=== PATIENT | female | born 1960 | race African-American/Black ===

== ENCOUNTER 2018-08-14 11:30 | Emergency (ER) | payer OTHER, SELFPAY ==
[~2018-08-14] VITALS: Ht 165.1 cm; Wt 72.6 kg
[~2018-08-14 11:30] MED LIST: ALBUTEROL SULF8.5 GM INH; DILANTIN100 MG PO; PHENOBARBITAL30 MG PO; TAPAZOLE10 MG PO; ZESTRIL10 MG PO
[2018-08-14] MEDS ORDERED: AMLODIPINE BESY10 MG ORAL (11:47)
[2018-08-14 11:50] VITALS: BP 150/103
--- NOTE | 2018-08-14 11:50 | NUR ---
ED Nurse Note: AMBULATED IN TO ER WITH FAMILY MEMBER DUE TO ABDOMINAL PAIN, DIARRHEA (3-4TIMES A DAY), VOMITING X3DAYS; UNABLE TO TOLERATE ORAL INTAKE. REPORTS NO USE OF ALCOHOL OR DRUG OR NO SEAFOOD CONSUMPTION.
[2018-08-14] MEDS ORDERED: Dicyclomine HCl 10mg/5ml oral soln ORAL ONE (12:15)
[2018-08-14] MEDS ORDERED: Lidocaine 2% Visc 15ml soln ORAL ONE (12:15)
[2018-08-14] MEDS ORDERED: Mylanta II UD 30ml ORAL ONE (12:15)
[2018-08-14 12:43] LABS: BASOPHILS % (AUTO) 0.9 % (0.0-2.0); EOSINOPHILS % (AUTO) 0.1 % (0.0-3.0); HEMATOCRIT 47.2 % (37.0-47.0); HEMOGLOBIN 15.8 G/DL (12.0-16.0); MEAN CORPUSCULAR VOLUME 89 FL (80-99); MONOCYTES % (AUTO) 6.5 % (1.0-10.0); NEUTROPHILS % (AUTO) 78.5 % (45.0-75.0); PLATELET COUNT 340 K/UL (150-450); RED BLOOD COUNT 5.29 M/UL (4.20-5.40); RED CELL DISTRIBUTION WIDTH 12.3 % (11.6-14.8); WHITE BLOOD COUNT 7.8 K/UL (4.8-10.8)
[2018-08-14 12:44] LABS: APPEARANCE,URINE SLIGHTLY CLOUDY; BILIRUBIN, URINE NEGATIVE (NEGATIVE); COLOR,URINE YELLOW; GLUCOSE, URINE (UA) NEGATIVE (NEGATIVE); KETONES,URINE 1+ (NEGATIVE); LEUKOCYTE ESTERASE ,URINE 1+ (NEGATIVE); NITRITE,URINE NEGATIVE (NEGATIVE); PH,URINE 6.5 (4.5-8.0); PROTEIN,URINE 2+ (NEGATIVE); UROBILINOGEN,URINE 1 MG/DL (0.0-1.0)
[2018-08-14 12:56] LABS: ANION GAP 10 mmol/L (5-15); BLOOD UREA NITROGEN 18 mg/dL (7-18); CALCIUM 9.8 MG/DL (8.5-10.1); CARBON DIOXIDE 27 MMOL/L (21-32); CHLORIDE 101 MMOL/L (98-107); CREATININE 0.9 MG/DL (0.55-1.30); POTASSIUM 3.5 MMOL/L (3.5-5.1); SODIUM 138 MMOL/L (136-145)
[2018-08-14 13:00] LABS: ALANINE AMINOTRANSFERASE 18 U/L (12-78); ALBUMIN 4.3 G/DL (3.4-5.0); ALBUMIN/GLOBULIN RATIO 1.1 (1.0-2.7); ALKALINE PHOSPHATASE 117 U/L (46-116); ASPARTATE AMINO TRANSFERASE 16 U/L (15-37); BILIRUBIN,TOTAL 0.7 MG/DL (0.2-1.0)
[2018-08-14] MEDS ORDERED: ONDANSETRON ODT4 MG BC (13:52)
[2018-08-14] MEDS ORDERED: DICYCLOMINE HCL10 MG PO (13:52)
[2018-08-14] MEDS ORDERED: RANITIDINE HCL150 MG ORAL (13:52)
[2018-08-14] MEDS ORDERED: CEPHALEXIN500 MG ORAL (13:52)
[2018-08-14] MEDS ORDERED: TAMIFLU75 MG ORAL (13:52)
[2018-08-14] MEDS ORDERED: Norco 5mg/325mg tab ORAL ONE (14:00)
[2018-08-14 14:17] VITALS: BP 170/108
--- NOTE | 2018-08-14 14:50 | NUR ---
ER Nurse Note: A/OX4. PT IS CLEARED BY DR.K. TOBAR INSTRUCTION AND PRESCRIPTIONS GIVEN, PT VERBALIZED UNDERSTSANDING. IV/ID WRISTBAND REMOVED. ALL BELONGINGS TAKEN BY PT. DENIES ANY PAIN AT THIS TIME. PT AMBULATED OUT OF ER WITH STEADY GAIT.
--- NOTE | 2018-08-14 14:52 | Emergency Room Report ---
History of Present Illness General Chief Complaint: Abdominal Pain Source: Patient Present Illness HPI 58-year-old female presents ED for evaluation. Complaining of abdominal pain with vomiting and diarrhea for the last 3 days. States that she recently return from a trip to [place]. Pain is cramping, 8 out of 10, nonradiating. Denies recent antibiotic use. Denies fevers or chills. Denies chest pain or shortness of breath. No other aggravating relieving factors. Denies any other associated symptoms Allergies: Coded Allergies: No Known Allergies (Unverified , 03/16/12) Patient History Past Medical History: HTN, asthma Past Surgical History: none Pertinent Family History: none Social History: Denies: smoking, alcohol use, drug use Now: No Immunizations: UTD Reviewed Nursing Documentation: PMH: Agreed; PSxH: Agreed Nursing Documentation-PMH Past Medical History: No History, Except For Hx Hypertension: Yes Hx Asthma: Yes Review of Systems All Other Systems: negative except mentioned in HPI Physical Exam Vital Signs Date Time Temp Pulse Resp B/P (MAP) Pulse Ox O2 Delivery O2 Flow Rate FiO2 08/14/18 11:42 97.5 85 16 150/103 97 Room Air Sp02 EP Interpretation: reviewed, normal General Appearance: no apparent distress, alert, GCS 15, non-toxic Head: normocephalic, atraumatic Eyes: bilateral eye normal inspection, bilateral eye PERRL ENT: hearing grossly normal, normal pharynx, no angioedema, normal voice Neck: full range of motion, supple/symm/no masses Respiratory: chest non-tender, lungs clear, normal breath sounds, speaking full sentences Cardiovascular #1: regular rate, rhythm, no edema Cardiovascular #2: 2+ carotid (R), 2+ carotid (L), 2+ radial (R), 2+ radial (L) , 2+ dorsalis pedis (R), 2+ dorsalis pedis (L) Gastrointestinal: normal bowel sounds, soft, non-distended, no guarding, no rebound, tenderness Rectal: deferred Genitourinary: normal inspection, no CVA tenderness Musculoskeletal: back normal, gait/station normal, normal range of motion, non- tender Neurologic: alert, oriented x3, responsive, motor strength/tone normal, sensory intact, speech normal Psychiatric: judgement/insight normal, memory normal, mood/affect normal, no suicidal/homicidal ideation Reflexes: 3+ bicep (R), 3+ bicep (L), 3+ tricep (R), 3+ tricep (L), 3+ knee (R) , 3+ knee (L) Skin: normal color, no rash, warm/dry, well hydrated Lymphatic: no adenopathy Medical Decision Making Diagnostic Impression: Primary Impression: UTI (urinary tract infection) Qualified Codes: N39.0 - Urinary tract infection, site not specified Additional Impression: Gastroenteritis ER Course Hospital Course 58 yo F presents with cramping abdominal pain with vomiting, diarrhea differential diagnosis: gastritis, SBO, cholecystits, gastroenteritis Clinical course Patient placed on stretcher. On cafeteria monitor. After initial history and physical I ordered labs, IV fluids, zofran, pepcid, GI cocktail Labs - no leukocytosis, electrolytes ok, LFTs normal, UA + bacteria, flu swab negative Upon reassessment, patient states pain has improved. findings consistent with gastroenteritis Discussed findings with patient. We'll discharge with medications, Tamiflu. Safe for discharge close outpatient follow-up states she has a PMD I feel this is a highly complex case requiring extensive working including EKG/ Rhythm strip, Xray/CT/US, Blood/urine lab work, repeat exams while in ED, and administration of strong opiates/narcotics for pain control, admission to hospital or close patient follow up. Diagnosis - gastroenteritis, UTI Stable and discharged to home with prescriptions for Zantac, zofran, bentyl, keflex, tamiflu. Followup with PMD. Return to ED if symptoms recur or worsen Labs Test 08/14/18 11:50 White Blood Count 7.8 K/UL (4.8-10.8) Red Blood Count 5.29 M/UL (4.20-5.40) Hemoglobin 15.8 G/DL (12.0-16.0) Hematocrit 47.2 % (37.0-47.0) Mean Corpuscular Volume 89 FL (80-99) Mean Corpuscular Hemoglobin 29.9 PG (27.0-31.0) Mean Corpuscular Hemoglobin Concent 33.5 G/DL (32.0-36.0) Red Cell Distribution Width 12.3 % (11.6-14.8) Platelet Count 340 K/UL (150-450) Mean Platelet Volume 6.3 FL (6.5-10.1) Neutrophils (%) (Auto) 78.5 % (45.0-75.0) Lymphocytes (%) (Auto) 14.0 % (20.0-45.0) Monocytes (%) (Auto) 6.5 % (1.0-10.0) Eosinophils (%) (Auto) 0.1 % (0.0-3.0) Basophils (%) (Auto) 0.9 % (0.0-2.0) Urine Color Yellow Urine Appearance Slightly cloudy Urine pH 6.5 (4.5-8.0) Urine Specific [place] 1.015 (1.005-1.035) Urine Protein 2+ (NEGATIVE) Urine Glucose (UA) Negative (NEGATIVE) Urine Ketones 1+ (NEGATIVE) Urine Blood 4+ (NEGATIVE) Urine Nitrite Negative (NEGATIVE) Urine Bilirubin Negative (NEGATIVE) Urine Urobilinogen 1 MG/DL (0.0-1.0) Urine Leukocyte Esterase 1+ (NEGATIVE) Urine RBC 5-10 /HPF (0 - 2) Urine WBC 0-2 /HPF (0 - 2) Urine Squamous Epithelial Cells Few /LPF (NONE/OCC) Urine Bacteria Occasional /HPF (NONE) Sodium Level 138 MMOL/L (136-145) Potassium Level 3.5 MMOL/L (3.5-5.1) Chloride Level 101 MMOL/L (98-107) Carbon Dioxide Level 27 MMOL/L (21-32) Anion Gap 10 mmol/L (5-15) Blood Urea Nitrogen 18 mg/dL (7-18) Creatinine 0.9 MG/DL (0.55-1.30) Estimat Glomerular Filtration Rate > 60 mL/min (>60) Glucose Level 99 MG/DL (74-106) Calcium Level 9.8 MG/DL (8.5-10.1) Total Bilirubin 0.7 MG/DL (0.2-1.0) Aspartate Amino Transf (AST/SGOT) 16 U/L (15-37) Alanine Aminotransferase (ALT/SGPT) 18 U/L (12-78) Alkaline Phosphatase 117 U/L (46-116) Total Protein 8.2 G/DL (6.4-8.2) Albumin 4.3 G/DL (3.4-5.0) Globulin 3.9 g/dL Albumin/Globulin Ratio 1.1 (1.0-2.7) Lipase 308 U/L (73-393) Last Vital Signs Date Time Temp Pulse Resp B/P (MAP) Pulse Ox O2 Delivery O2 Flow Rate FiO2 08/14/18 14:18 97.5 70 16 170/108 97 Room Air Status: improved Disposition: HOME, SELF-CARE Condition: Stable Scripts Oseltamivir Phosphate (Tamiflu) 75 Mg Capsule 75 MG ORAL TWICE A DAY for 5 Days, CAP Prov: Minh Márquez MD 08/14/18 Cephalexin* (KEFLEX*) 500 Mg Capsule 500 MG ORAL EVERY 6 HOURS for 7 Days, CAP Prov: Minh Márquez MD 08/14/18 Dicyclomine Hcl* (DICYCLOMINE HCL*) 10 Mg Capsule 10 MG PO QID for 5 Days, CAP Prov: Minh Márquez MD 08/14/18 Ondansetron Odt* (ZOFRAN ODT*) 4 Mg Tab.rapdis 4 MG BC EVERY 8 HOURS, #10 TAB 0 Refills Prov: Minh Márquez MD 08/14/18 Ranitidine Hcl* (ZANTAC*) 150 Mg Tablet 150 MG ORAL TWICE A DAY, #30 TAB Prov: Minh Márquez MD 08/14/18 Referrals: NON PHYSICIAN (PCP) Patient Instructions: Viral Gastroenteritis, Adult, [id number] Minh Márquez MD Aug 14, 2018 14:52
== END 2018-08-14 14:50 | disposition home or self-care (01) ==
LOC: EMR 12:30
DX: N39.0 Urinary tract infection, site not specified (principal); K52.9 Noninfective gastroenteritis and colitis, unspecified; I10 Essential (primary) hypertension; J45.909 Unspecified asthma, uncomplicated
CPT/HCPCS: 36415; 80053; 81003; 83690; 85025; 86710; 96361; 96374; 96375; 99284; J2405; S0028

== ENCOUNTER 2019-12-14 15:58 | Emergency (ER) | payer MEDICAID, OTHER ==
[~2019-12-14] VITALS: Ht 165.1 cm; Wt 72.6 kg
[~2019-12-14 15:58] MED LIST changes: +AMLODIPINE BESY10 MG ORAL; +CEPHALEXIN500 MG ORAL; +DICYCLOMINE HCL10 MG PO; +ONDANSETRON ODT4 MG BC; +RANITIDINE HCL150 MG ORAL; +TAMIFLU75 MG ORAL
[2019-12-14 16:20] VITALS: BP 105/25
--- NOTE | 2019-12-14 16:24 | Emergency Room Report ---
History of Present Illness General Chief Complaint: Flu Like Symptoms Source: Patient Present Illness HPI Patient is a 59-year-old female presents after increased nausea and vomiting. Reports having multiple episodes of vomiting yesterday. Had prior history of seizure disorder and normally takes Dilantin and phenobarbital. Reports of increased generalized weakness. Denies any fever. States she is not been coughing or having any shortness of breath. Reports having similar symptoms in the past. Denies any bad food exposure. Reports having normal bowel movements. Had not been having hematemesis or bloody stools. Denies any abdominal pain currently. Denies prior abdominal surgeries or bowel obstructions. Allergies: Coded Allergies: No Known Allergies (Unverified , 03/16/12) COVID-19 Screening Contact w/high risk pt: No Recent Travel to affected area: No Experienced COVID-19 symptoms?: Yes COVID-19 symptoms experienced: Flu-Like Symptoms COVID-19 Testing performed WASTEWATER MANAGER: No Patient History Past Medical History: see triage record Last Menstrual Period: none Now: No Reviewed Nursing Documentation: PMH: Agreed; PSxH: Agreed Nursing Documentation-PMH Past Medical History: No History, Except For Hx Hypertension: Yes Hx Asthma: Yes Review of Systems All Other Systems: negative except mentioned in HPI Physical Exam Vital Signs Date Time Temp Pulse Resp B/P (MAP) Pulse Ox O2 Delivery O2 Flow Rate FiO2 12/14/19 16:03 98.6 88 20 105/25 (51) 97 Room Air Sp02 EP Interpretation: reviewed, normal General Appearance: normal inspection, well appearing, no apparent distress, alert, GCS 15, non-toxic Head: atraumatic ENT: normal ENT inspection, hearing grossly normal, normal voice Neck: normal inspection, full range of motion, supple, no bony tend Respiratory: normal inspection, lungs clear, normal breath sounds, no respiratory distress, no retraction, no wheezing Cardiovascular #1: regular rate, rhythm, no edema Gastrointestinal: normal inspection, normal bowel sounds, non tender, soft, no guarding, no hernia Genitourinary: no CVA tenderness Musculoskeletal: normal inspection, back normal, normal range of motion Neurologic: alert, motor strength/tone normal, manager field sales III-XII nml as tested, oriented x3, responsive, speech normal, normal inspection Psychiatric: normal inspection, judgement/insight normal, mood/affect normal Medical Decision Making Diagnostic Impression: Primary Impression: Gastroenteritis ER Course Patient presented for nausea vomiting. Differential diagnosis include was not limited to Dilantin toxicity, phenobarbital overdose, electrolyte abnormality, gastroenteritis, dehydration among others. Because of complexity of patient's case laboratory tests and imaging studies were ordered.Laboratory testing showed slight hypokalemia and patient was given IV fluids as well as IV antiemetics with improvement in her nausea and vomiting. She was given oral potassium. Patient is given prescription for oral nausea medications. Abdomen continues to be benign on repeat exam. Patient was advised to return if she was unable to tolerate oral fluids. The patient states that she has adequate dosages of her medications at home and will take them when she gets home. The patient is advised to follow up with primary care doctor in 1-2 days. Patient is advised to return if any worsening condition or if any changes in status that are concerning. This report is dictated with [employer] computer typesetter keyliner software which may occasionally lead to discrepancies related to use of this software. Labs Test 12/14/19 16:35 White Blood Count 12.4 K/UL (4.8-10.8) Red Blood Count 5.07 M/UL (4.20-5.40) Hemoglobin 15.2 G/DL (12.0-16.0) Hematocrit 47.7 % (37.0-47.0) Mean Corpuscular Volume 94 FL (80-99) Mean Corpuscular Hemoglobin 29.9 PG (27.0-31.0) Mean Corpuscular Hemoglobin Concent 31.8 G/DL (32.0-36.0) Red Cell Distribution Width 13.0 % (11.6-14.8) Platelet Count 350 K/UL (150-450) Mean Platelet Volume 6.2 FL (6.5-10.1) Neutrophils (%) (Auto) 84.5 % (45.0-75.0) Lymphocytes (%) (Auto) 8.7 % (20.0-45.0) Monocytes (%) (Auto) 5.1 % (1.0-10.0) Eosinophils (%) (Auto) 0.2 % (0.0-3.0) Basophils (%) (Auto) 1.5 % (0.0-2.0) Sodium Level 136 MMOL/L (136-145) Potassium Level 3.2 MMOL/L (3.5-5.1) Chloride Level 97 MMOL/L (98-107) Carbon Dioxide Level 26 MMOL/L (21-32) Anion Gap 14 mmol/L (5-15) Blood Urea Nitrogen 16 mg/dL (7-18) Creatinine 1.0 MG/DL (0.55-1.30) Estimat Glomerular Filtration Rate > 60 mL/min (>60) Glucose Level 115 MG/DL (74-106) Calcium Level 9.7 MG/DL (8.5-10.1) Total Bilirubin 0.5 MG/DL (0.2-1.0) Aspartate Amino Transf (AST/SGOT) 28 U/L (15-37) Alanine Aminotransferase (ALT/SGPT) 30 U/L (12-78) Alkaline Phosphatase 113 U/L (46-116) Total Protein 9.3 G/DL (6.4-8.2) Albumin 4.5 G/DL (3.4-5.0) Globulin 4.8 g/dL Albumin/Globulin Ratio 0.9 (1.0-2.7) Lipase 80 U/L (73-393) Phenytoin (Dilantin) Level 0.7 ug/mL (10-20) Phenobarbital Level < 1.0 ug/mL (15-40) Last Vital Signs Date Time Temp Pulse Resp B/P (MAP) Pulse Ox O2 Delivery O2 Flow Rate FiO2 12/14/19 16:03 98.6 88 20 105/25 (51) 97 Room Air Status: improved Disposition: HOME, SELF-CARE Condition: Stable Scripts Ondansetron Odt* (ZOFRAN ODT*) 4 Mg Tab.rapdis 4 MG BC EVERY 6 HOURS PRN for Nausea & Vomiting, #10 TAB 0 Refills Prov: Sanchez Nair MD 12/14/19 Sanchez Nair MD Dec 14, 2019 16:24
[2019-12-14 17:04] LABS: BASOPHILS % (AUTO) 1.5 % (0.0-2.0); EOSINOPHILS % (AUTO) 0.2 % (0.0-3.0); HEMATOCRIT 47.7 % (37.0-47.0); HEMOGLOBIN 15.2 G/DL (12.0-16.0); LYMPHOCYTES % (AUTO) 8.7 % (20.0-45.0); MEAN CORPUSCULAR VOLUME 94 FL (80-99); MONOCYTES % (AUTO) 5.1 % (1.0-10.0); NEUTROPHILS % (AUTO) 84.5 % (45.0-75.0); PLATELET COUNT 350 K/UL (150-450); RED BLOOD COUNT 5.07 M/UL (4.20-5.40); WHITE BLOOD COUNT 12.4 K/UL (4.8-10.8)
[2019-12-14 17:15] LABS: ANION GAP 14 mmol/L (5-15); BLOOD UREA NITROGEN 16 mg/dL (7-18); CALCIUM 9.7 MG/DL (8.5-10.1); CARBON DIOXIDE 26 MMOL/L (21-32); CHLORIDE 97 MMOL/L (98-107); POTASSIUM 3.2 MMOL/L (3.5-5.1); SODIUM 136 MMOL/L (136-145)
[2019-12-14 17:20] LABS: ALANINE AMINOTRANSFERASE 30 U/L (12-78); ALBUMIN 4.5 G/DL (3.4-5.0); ALBUMIN/GLOBULIN RATIO 0.9 (1.0-2.7); ALKALINE PHOSPHATASE 113 U/L (46-116); ASPARTATE AMINO TRANSFERASE 28 U/L (15-37); BILIRUBIN,TOTAL 0.5 MG/DL (0.2-1.0)
[2019-12-14] MEDS ORDERED: ONDANSETRON ODT4 MG BC (17:45)
[2019-12-14 18:40] VITALS: BP 105/25
== END 2019-12-14 18:40 | disposition home or self-care (01) ==
LOC: EMR 16:30
DX: K52.9 Noninfective gastroenteritis and colitis, unspecified (principal); G40.909 Epilepsy, unspecified, not intractable, without status epilepticus; Z79.899 Other long term (current) drug therapy; I10 Essential (primary) hypertension; E87.6 Hypokalemia
CPT/HCPCS: 36415; 80053; 80184; 80185; 83690; 85025; 96361; 96374; 96375; J2405; J7030; S0028; Z7502; 99284; J8499

== ENCOUNTER 2020-02-28 11:32 | Emergency (ER) | payer MEDICAID, OTHER ==
[~2020-02-28] VITALS: Ht 165.1 cm; Wt 72.6 kg
[2020-02-28 11:45] VITALS: BP 184/126
--- NOTE | 2020-02-28 11:49 | NUR ---
ED Nurse Note: Pstient walked in to ER C/O abd pain with nausea since this morning. Patient stated " I have stomach virus, so please give me some Zofran and send me home." Patient walked in to ER with steady gait, AAO x4, VSS at this time, skin is warm to touch.
--- NOTE | 2020-02-28 11:53 | Emergency Room Report ---
History of Present Illness General Chief Complaint: Abdominal Pain Source: Patient Present Illness HPI Disclaimer: Please note that this report is being documented using [employer] technology. This can lead to erroneous entry secondary to incorrect interpretation by the dictating instrument. HPI: 59-year-old female presents for evaluation of abdominal pain and nausea. Patient states this morning she began to have some epigastric discomfort and had several episodes of nonbloody nonbilious emesis. Reports feeling nauseated but no longer feeling abdominal pain. Denies fever, chills, chest pain, shortness of breath, lower abdominal cramping, dysuria, hematuria, diarrhea. Patient states this is a "stomach virus" and that she gets them all the time. She is asking for a prescription for Zofran does not want medical work-up in the ED. She states she was recently here and her labs and CT were normal. She is looking for a place to rest for a while and requesting oral Zofran and something to eat. PMH: Hypertension, asthma PSH: Reviewed Allergies: Reviewed Social Hx: Reviewed Allergies: Coded Allergies: No Known Allergies (Unverified , 03/16/12) COVID-19 Screening Contact w/high risk pt: No Recent Travel to affected area: No Experienced COVID-19 symptoms?: No COVID-19 symptoms experienced: Flu-Like Symptoms COVID-19 Testing performed NOUGAT CUTTER MACHINE: No Patient History Last Menstrual Period: na Nursing Documentation-PMH Past Medical History: No History, Except For Hx Hypertension: Yes Hx Asthma: Yes Review of Systems All Other Systems: negative except mentioned in HPI Physical Exam Vital Signs Date Time Temp Pulse Resp B/P (MAP) Pulse Ox O2 Delivery O2 Flow Rate FiO2 02/28/20 11:38 98.1 73 18 184/126 (145) 98 General: Awake and alert, no acute distress HEENT: NC/AT. EOMI. Cardiovascular: RRR. S1 and S2 normal. No murmur appreciated Resp: Normal work of breathing. No cough, wheezing or crackles appreciated Abdomen: Abdomen is soft, nondistended. Nontender, no masses, no rebound, negative William's. No flank tenderness. Skin: Intact. No abrasions, laceration or rash over the exposed skin MSK: Normal tone and bulk. Moving all extremities. No obvious deformity. Neuro: Awake and alert. Mentating appropriately. Medical Decision Making Diagnostic Impression: Primary Impression: Gastritis ER Course Is a 59-year-old female presenting for evaluation of nausea and vomiting. The patient is currently denying abdominal pain. Differential includes was not limited to gastritis, gastroenteritis, GERD, pancreatitis, cholecystitis, bowel obstruction, pancreatitis among others. Patient is well-appearing, has a nontender abdomen, hypertensive but otherwise vital signs within normal limits. She is denying any symptoms right now is looking for a place to rest and asking for oral Zofran which I will provide. And additionally plan to perform labs however the patient declined work-up in the ED at this time opting for symptomatic treatment. No further symptoms in the ED. We will refill her Zofran prescription and instruct her to return with new or worsening symptoms. She understands and agrees with the treatment plan. Last Vital Signs Date Time Temp Pulse Resp B/P (MAP) Pulse Ox O2 Delivery O2 Flow Rate FiO2 02/28/20 11:45 73 18 02/28/20 11:45 98.1 184/126 98 Disposition: HOME, SELF-CARE Condition: Stable Scripts Ondansetron Odt* (ZOFRAN ODT*) 4 Mg Tab.rapdis 4 MG BC EVERY 6 HOURS PRN for Nausea & Vomiting, #20 TAB 0 Refills Prov: Ty Nice MD 02/28/20 Ty Nice MD Feb 28, 2020 11:53
[2020-02-28] MEDS ORDERED: ONDANSETRON ODT4 MG BC (12:12)
[2020-02-28 13:52] VITALS: BP 145/82
--- NOTE | 2020-02-28 13:52 | NUR ---
ED Nurse Note: Pt cleared by ERMD for discharge. DC instructions was given and explained to pt and verbalized understanding of teachings. prescription sent electronically to the pharmacy of choice. All medical deviecs such as ID band removed. Pt is AAO x4, ambulatory and left with all personal belongings. P/u by family member.
== END 2020-02-28 13:52 | disposition home or self-care (01) ==
LOC: EMR 11:50
DX: K29.70 Gastritis, unspecified, without bleeding (principal); I10 Essential (primary) hypertension
CPT/HCPCS: 99282